=== PATIENT | female | born 1995 | race Caucasian/White ===

== ENCOUNTER 2019-12-23 20:28 | Emergency (ER) | payer OTHER ==
[~2019-12-23] VITALS: Ht 149.9 cm; Wt 71.0 kg
[2019-12-23 21:29] VITALS: BP 113/75
[2019-12-23] MEDS ORDERED: LIDOCAINE HCL/EPINEPHRINE 1%-EPI 1:100,000 20 ML VIAL INFIL ONE (21:45)
[2019-12-23] MEDS ORDERED: BACITRACIN ZINC OINT UDPKT TOP ONE (22:45)
== END 2019-12-23 23:24 | disposition home or self-care (01) ==
LOC: ER 20:28
DX: S01.01XA Laceration without foreign body of scalp, initial encounter (principal); W01.0XXA Fall on same level from slipping, tripping and stumbling without subsequent striking against object, initial encounter; Y93.89 Activity, other specified; Y92.89 Other specified places as the place of occurrence of the external cause; Y99.8 Other external cause status
CPT/HCPCS: 12002; 81025; 99282; J3490; Z7610